=== PATIENT | male | born 1965 | race Caucasian/White ===

== ENCOUNTER 2020-11-25 06:43 | Emergency (ER) | payer SELFPAY ==
[~2020-11-25] VITALS: Ht 157.5 cm; Wt 81.8 kg
[~2020-11-25 06:43] MED LIST: AMOXICILLIN 8751 TAB PO; CEPHALEXIN500 M1 PO; ESKALITH-CR450 MG PO; KLONOPIN1 MG PO; LAMICTAL 100MG100 MG PO; LORTAB 5/500 501 TAB PO; LORTAB 7.5/5001 TAB PO; RIBASPHERE200 MG PO; ROFERON-A18 MILLION IM; SEPTRA DS 8001 TAB PO; SYNTHROID 0.10.15 MG PO
[2020-11-25 06:55] VITALS: TEMP 98.3
[2020-11-25 08:19] LABS: HEMOGLOBIN 13.3 g/dl (13.5-18.0); MEAN CELL VOLUME 94 fl (80.0-100.0); MEAN CORPUSCULAR HEMOGLOBIN 30 pg (27.0-31.0); MEAN CORPUSCULAR HGB CONC 32 g/dl (33.0-37.0); MEAN PLATELET VOLUME 10.6 fl (7.4-10.4); PLATELET COUNT 274 K/mm3 (130-400); RED BLOOD COUNT 4.37 M/mm3 (4.20-5.60); REDCELL DISTRIBUTION WIDTH-CV 13.5 % (11.5-14.5)
[2020-11-25 08:30] LABS: ALBUMIN 3.9 gm/dL (3.5-5.0); BILIRUBIN,TOTAL 0.2 mg/dL (0.0-1.0); C-REACTIVE PROTEIN 4.6 mg/dL (0.0-0.9); CALCIUM 9.1 mg/dL (8.4-10.2); CREATININE, serum 0.67 (0.66-1.25); POTASSIUM 4.3 mmol/L (3.4-5.0); TOTAL PROTEIN 7.1 gm/dL (6.4-8.2)
[2020-11-25 09:01] LABS: EOSINOPHIL 2 % (0-4); LYMPHOCYTE 15 % (20.0-51.0); NEUTROPHILS 80 % (42.0-75.2); PLATELET ESTIMATE NORMAL (NORMAL)
--- NOTE | 2020-11-25 09:02 | NUR ---
CLARA responded to ED consult. The patient has a history of IV drug use and was interested in resources. SW's met with the patient. The patient lives in [place] with his mother, Brinda Melgar. He states that he helps take care of his mother. The patient reports that his brother, Elliot, brought him up to the hospital and is helping take care of their mother while he is here. He states that his mother is safe. SW addressed the patient's drug use. The patient reports that he has done all drugs, but that his drug of choice is heroin. He informed that he last used a couple months ago and has been and IV drug user since he was [age]. The patient states that he is not currently using, but would be interested in a list of drug treatment resources. SW provided that list. The patient states that he is just in a lot of pain and does not really want to talk right now. CLARA updated the patient's RN. CLARA made an APS report, due to concerns for his mother. APS report Intake ID#[id number].
[2020-11-25 09:03] LABS: HYPOCHROMIA 2+
[2020-11-25 09:05] LABS: COLLECTION METHOD CLEAN CATCH
[2020-11-25 09:17] LABS: PH 6 (5-8); SQUAMOUS EPITHELIAL None Seen /hpf; URINE APPEARANCE Clear; URINE BACTERIA None Seen /hpf; URINE BILIRUBIN Negative (NEGATIVE); URINE BLOOD Negative (NEGATIVE); URINE COLOR Straw; URINE GLUCOSE Negative (NEGATIVE); URINE KETONE Negative (NEGATIVE); URINE LEUKOCYTE ESTERASE Negative (NEGATIVE); URINE NITRATE Negative (NEGATIVE); URINE PROTEIN(semi-quant) Negative (NEGATIVE); URINE RBC 0-2 /hpf; URINE UROBILINOGEN Negative (NEGATIVE)
[2020-11-25] MEDS ORDERED: NEURONTIN300 MG/CAP PO (09:46)
[2020-11-25 10:03] LABS: TRICYCLIC ANTIDEPRESS URINE NEGATIVE
[2020-11-25 11:11] VITALS: BP 131/92; PULSE 72
[2020-12-20] MEDS ORDERED: SYNTHROID0.175 MG PO ×2 (14:44→14:45)
[2020-12-20] MEDS ORDERED: ALEVE 220MG220 MG PO (14:46)
[2020-12-20] MEDS ORDERED: TYLENOL 325MG325 MG PO (14:46)
== END 2020-11-25 11:11 | disposition home or self-care (01) ==
LOC: COL.ER 06:43
PROVIDERS: Family Medicine
DX: F11.23 Opioid dependence with withdrawal (principal); G47.30 Sleep apnea, unspecified; F17.210 Nicotine dependence, cigarettes, uncomplicated
CPT/HCPCS: J1885

== ENCOUNTER → 2020-12-22 | Outpatient (CLI) | payer SELFPAY ==
[~2020-12-22] VITALS: Ht 157.5 cm; Wt 83.7 kg
[~2020-12-22] MED LIST changes: +ALEVE 220MG220 MG PO; +NEURONTIN300 MG/CAP PO; +SYNTHROID0.175 MG PO; +TYLENOL 325MG325 MG PO
[2020-12-22 09:23] VITALS: BP 131/81; PULSE 100
[2020-12-22 10:22] VITALS: BP 135/88; PULSE 91
== END ==
LOC: COL.RAD 09:01
DX: M54.2 Cervicalgia (principal); M25.511 Pain in right shoulder; M25.512 Pain in left shoulder; M47.812 Spondylosis without myelopathy or radiculopathy, cervical region
CPT/HCPCS: J1100

== ENCOUNTER → 2021-02-24 | Outpatient (CLI) | payer SELFPAY | LOC: COL.RAD 13:43 | DX: M47.812 Spondylosis without myelopathy or radiculopathy, cervical region (principal); M25.511 Pain in right shoulder; M25.512 Pain in left shoulder ==

== ENCOUNTER 2021-11-22 11:24 | Inpatient (IN) | payer SELFPAY ==
[~2021-11-22] VITALS: Ht 182.9 cm; Wt 76.2 kg
[~2021-11-22 11:24] MED LIST changes: +AMPICILLIN 22 G/VIAL IV; +ASPIRIN E.C. 8181 MG PO; +EUTHYROX175 MCG PO; +LIPITOR 80MG80 MG PO; +LOVENOX 4040 MG/0.4 SQ; +NICODERM C21 MG/PATC TD; +PLAVIX 75MG TAB75 MG PO; +PROTONIX 40MG T40 MG PO
[2021-11-22] MEDS ORDERED: FIORICET 325 MG1 TA1 PO (11:52)
--- NOTE | 2021-11-22 12:59 | NUR ---
Pt. transferred to unit from Medical unit at approx 12:06 p.m. via wheelchair. PICC placed to [facility] prior to admission to unit. Pt. is a/o x 4. Orientation provided to room/unit. Admission intake and Physical Assessment completed. Pt. denies further needs at this time. Call light is within his reach
--- NOTE | 2021-11-22 13:32 | NUR ---
IV abx infusing to RUE PICC. PICC flushed well w/ noted blood return
--- NOTE | 2021-11-22 17:03 | NUR ---
Pt sitting up in bed. He denies pain or discomfort. He denies further needs at this time. Call light is within his reach
[2021-11-22 17:04] VITALS: BP 121/81; PULSE 80; TEMP 97.7
[2021-11-22 18:00] VITALS: BP 121/81; PULSE 80; TEMP 97.7
--- NOTE | 2021-11-23 00:30 | NUR ---
Pt laying bed in quietly. Assessment and medication administration completed without difficulty. Pt is A&O and pleasant. Pt complains of a headache, PRN pain medication administered per EMAR. All other needs met at this time, call light within reach.
[2021-11-23 05:24] VITALS: BP 107/66; PULSE 81; TEMP 98.8
--- NOTE | 2021-11-23 06:48 | NUR ---
Shift report received from slot shift supervisor RN. Pt. awake, lying supine, ordering breakfast. RUE PICC line dressing CDI. Pt. denies pain/discomfort. Call light is within his reach
--- NOTE | 2021-11-23 09:23 | NUR ---
Pt lying on right side in bed. He has just finished PT for the morning. PICC RUE dsg is CDI. Pt. denies pain or discomfort. Denies further needs. Call light is within his reach
[2021-11-23 10:25] VITALS: BP 114/62; PULSE 74
--- NOTE | 2021-11-23 15:25 | NUR ---
CLARA met with the patient to complete intake, as the patient is new to [facility]. The patient lives in [place] with his mother, Brinda. His mother is currently hospitalized and is looking at going to a SNF or swing bed upon her hospital stay. The patient's siblings are assisting his mother with this. He reports independence with ADLs before hospitalization and does not have any DME. The patient's PCP is Dr. Yolanda Ramos and he receives his medications from [facility]. The patient is self pay. Financial Counseling met with the patient during his acute stay and reported that the patient does not qualify for Medicaid. The patient does not have a DPOA-HC, but he was interested in obtaining a form. CLARA provided. The patient states that he is not and has three children: Jarret, Jose, and Morro. CLARA informed him how his children are is legal next of kin. The patient verbalized understanding. CLARA then presented the patient with the IPR Team Conference Note. The team has set a discharge date for next Sunday, 12/02, with outpatient PT. The patient is in agreement to the plan. Due to the patient being self pay, outpatient PT would need to be set up at an [facility]. The patient states that the [place] side location [place] him. He states that he does not drive or have a vehicle. He states that he normally walks or rides his bike to places. CLARA informed him of the [facility] bus being an option. CLARA discussed setting up a patient/family meeting. The patient states that he does not have any family that he would want to have attend a meeting for him. CLARA updated IPR Director.
[2021-11-23 16:09] VITALS: BP 104/65; PULSE 73; TEMP 98
[2021-11-23 18:00] VITALS: BP 129/70; PULSE 88; TEMP 98.2
--- NOTE | 2021-11-23 18:23 | NUR ---
Pt reporting worsening headache. PRN Tylenol was given at 1600 for mild headache (3/10 pain). Pt. now rating headache at 7/10. VS WNL. Pupils equal, reactive to light. No nausea. Does have a runny nose. Dr. Hernandez notified - he will re-order Fioricet prn for NORTON as was previously used on another unit. Per Dr. Hernandez, if any neuro changes noted from baseline, notify the hospitalist. Awaiting verification from pharmacy and will administer. Will continue to monitor.
--- NOTE | 2021-11-23 19:11 | NUR ---
Fioricet administered per physician's order. Pt. reports that NORTON is starting to get better
--- NOTE | 2021-11-23 19:51 | NUR ---
PT RESTING IN BED. LT SIDED WEAKNESS ARM MORE THNA LEG. LT SIDED MOUTH DROOP. SL SLURRED SPEECH. PT RELATES HEADACHE MUCH BETTER NOW AFTER TAKING FIORICET. PT REMAIN IN ISOLATION FOR MRSA. CALL LIGHT IN REACH. BED ALAR SET.
--- NOTE | 2021-11-24 00:56 | NUR ---
PT C/O NORTON. 12/18. NO CHANGE IN NEURO STATUS. PT FEELS LIKE ITS HIS SINUSES. FIORICET GIVEN.. ICE PACK TO HEAD
[2021-11-24 01:02] VITALS: BP 131/83; PULSE 77
[2021-11-24 04:00] VITALS: BP 95/55; PULSE 78; TEMP 98.6
--- NOTE | 2021-11-24 09:33 | NUR ---
ALERT AND OX4. PLEASENT THIS AM HOWEVER DOES C/O NORTON. DR ARRINGTON ADDS TYL3. PTPICC TO RT UPPER ARM INTACT FLUSHES AND DRAWS BLOOD. DR AMANDA CALLS THIS AM TO REPORT NEW BLEED PER CT- INFORMED ANOTHER ONE ORDERED FOR 10AM D/T [facility] NEUROS[facility] ASKING FOR IT TO BE REPEAT AT 24 HR OF SYMPTOMS. POSSIBLE TRANS TO [facility] TODAY.
--- NOTE | 2021-11-24 10:43 | NUR ---
RETURNS FROM CT SCAN PER W/C. LINENS CHANGED.
--- NOTE | 2021-11-24 12:49 | NUR ---
UPDATED DR KWOK ON PT STATUS AFTER CONSULT HE ORDERS CTA OF HEAD W CONTRAST, ORDER PLACED.
--- NOTE | 2021-11-24 16:11 | NUR ---
UPDATED BALBINA STILES, PT CONT TO REPORT NORTON. DR KWOK WILL BE ROUNDING AFTER 5 PER BALBINA AND WILL GIVEN RECOMMENDATIONS.
[2021-11-24 18:22] VITALS: BP 114/75; PULSE 80; TEMP 98.2
--- NOTE | 2021-11-24 19:30 | NUR ---
RECEIVED CHANGE OF SHIFT REPORT FROM DAY SHIFT RN.
[2021-11-25 05:55] VITALS: BP 108/70; BP 99/72; PULSE 80; TEMP 98
[2021-11-25 06:44] LABS: BASO # 0.1 K/mm3 (0.0-0.2); BASO % 0.5 % (0.0-2.0); EOS # 0.5 K/mm3 (0.0-0.7); EOS % 3.4 % (0.0-4.0); GRAN % 67.3 % (42.2-75.2); HEMOGLOBIN 12.1 g/dl (13.5-18.0); LYMPH # 2.6 K/mm3 (1.2-3.4); LYMPH % 19.7 % (20.0-51.0); MEAN CELL VOLUME 93 fl (80.0-100.0); MEAN CORPUSCULAR HEMOGLOBIN 31 pg (27-31); MEAN CORPUSCULAR HGB CONC 33 g/dl (33.0-37.0); MEAN PLATELET VOLUME 11.2 fl (7.4-10.4); MONO # 1.1 K/mm3 (0.1-0.6); MONO % 8.6 % (1.7-9.3); PLATELET COUNT 281 K/mm3 (130-400); RED BLOOD COUNT 3.94 M/mm3 (4.20-5.60); REDCELL DISTRIBUTION WIDTH-CV 13.2 % (11.5-14.5)
[2021-11-25 06:50] LABS: HEMATOCRIT 36.5 % (42.0-52.0)
[2021-11-25 07:00] LABS: CALCIUM 9.1 mg/dL (8.4-10.2); CREATININE, serum 0.79 mg/dL (0.72-1.25); POTASSIUM 4.4 mmol/L (3.5-4.5)
--- NOTE | 2021-11-25 07:30 | NUR ---
CHANGE OF SHIFT REPORT GIVEN TO DAY SHIFT RNLORI.
--- NOTE | 2021-11-25 11:12 | NUR ---
PT IN BED WITH HOB ELEVATED 35 DEGREES. PT DEMONSTRATES UNDERSTANDING OF BEDREST, USES URINAL. PT DOES MOVE ET REPOSITION HIMSELF WELL IN BED INDEPENDENTLY. PT STATES THAT HE HAS CONTINUES TO HAVE HEADACHES BUT THAT SEVERITY HAS LESSENED. WHILE WORKING WITH PHYSICAL THERAPY THIS MORNING, PT REPORTED HAVING A LOUD BUZZING NOISE IN HIS EARS THAT DISIPATED AFTER SEVERAL MINUTES.
--- NOTE | 2021-11-25 13:17 | NUR ---
Admission QIM scores were reviewed by the team. Code of 4 chosen for sit to lying was determined by team discussion to be the most usual performance before interventions for this patient during the assessment period. Code of 4 chosen for lying to sitting on side of bed was determined by team discussion to be the most usual performance for this patient during the assessment period. Code of 3 chosen for walk 10 feet was determined by team discussion to be the most usual performance for this patient during the assessment period. Code of 3 chosen for walk 50 feet w/ 2 turns was determined by team discussion to be the most usual performance for this patient during the assessment period.--Isela Rene, PD
--- NOTE | 2021-11-25 14:14 | NUR ---
PT HAS HAD FINAL MRSA NASAL SWAB RESULT IN A NEGATIVE, WILL BE TAKEN OUT OF CONTACT PRECAUTIONS. Cecil CABALLERO NOTIFIED.
[2021-11-25 17:22] VITALS: BP 121/72; PULSE 77; TEMP 98.6
--- NOTE | 2021-11-25 18:37 | NUR ---
PT HAS SLEPT INTERMITTENTLY THROUGHOUT DAY, STATES THAT HEADACHE BECOMES LESS SEVERE WITH MEDICATION BUT NEVER COMPLETELY GOES AWAY. SPEECH IS SLURRED BUT PT IS APPROPRIATE. LEFT SIDED FACIAL DROOP IS NOTED. PT HAS DRANK ET EATEN MEALS WITH NO PROBLEMS, REQUIRES SET-UP ASSISTANCE.
--- NOTE | 2021-11-25 18:56 | NUR ---
RECEIVED CHANGE OF SHIFT REPORT FROM DAY SHIFT RN.
[2021-11-26 05:35] VITALS: BP 114/75; PULSE 72; TEMP 98.7
--- NOTE | 2021-11-26 06:59 | NUR ---
CHANGE OF SHIFT REPORT GIVEN TO DAY SHIFT RNPRASHANTH.
--- NOTE | 2021-11-26 07:19 | NUR ---
Shift report received from operation shift supervisor RN. Pt. resting in left side lying position in bed. Call light is within his reach
--- NOTE | 2021-11-26 10:20 | NUR ---
Pt. lying supine in bed waiting for OT session this morning. He remains on bedrest. He reports a headache at 1/10 pain and reports headache as feeling dull. Pt. practicing using his left hand to grab things on his bedside table. He denies further needs at this time. Call light is within his reach
[2021-11-26 12:58] VITALS: BP 124/80
--- NOTE | 2021-11-26 12:59 | NUR ---
Pt requesting Tylenol for NORTON at 10 pain. BP WNL. Tylenol given
[2021-11-26 17:28] VITALS: BP 121/77; PULSE 73; TEMP 98.4
--- NOTE | 2021-11-26 19:29 | NUR ---
RECEIVED CHANGE OF SHIFT REPORT FROM DAY SHIFT RN. BED ALARM ON, CALL LIGHT WITHIN REACH. DENIES ANY NEEDS/DISCOMFORT AT THIS TIME. AGREED TO TAKE STOOL SOFTENER WITH MEDS TONIGHT. L HAND DESIGN DRAFTER CHIEF WEAKER THAN RIGHT HAND DESIGN DRAFTER CHIEF AT THIS TIME.
[2021-11-27 05:49] VITALS: BP 117/76; PULSE 71; TEMP 98
--- NOTE | 2021-11-27 06:53 | NUR ---
Shift report report received from night stocker RN. Pt. resting in right side lying position. SCDs are on. Call light is within his reach
--- NOTE | 2021-11-27 07:02 | NUR ---
CHANGE OF SHIFT REPORT GIVEN TO DAY SHIFT RNPRASHANTH.
[2021-11-27 17:35] VITALS: BP 117/74; PULSE 71; TEMP 98
--- NOTE | 2021-11-27 19:07 | NUR ---
RECEIVED CHANGE OF SHIFT REPORT FROM DAY SHIFT RN. PATIENT DENIES ANY NEEDS AT TIME OF REPORT. BED ALARM ON WHEN IN BED, CALL LIGHT WITHIN REACH. OBSERVED GAIT EVEN AND STEADY WHEN UP OUT OF BED.
--- NOTE | 2021-11-27 20:00 | NUR ---
MANAN HAND HEADER SET UP OPERATOR NOT EQUAL WITH L WEAKER THAN RIGHT. OBSERVED B LEG STRENGTH EVEN WITH STEADY GAIT. DENIES PAIN AT THIS TIME.
[2021-11-28 05:30] VITALS: BP 105/68; PULSE 73; TEMP 98.8
--- NOTE | 2021-11-28 06:55 | NUR ---
Shift report received from shiftman RN. Pt. is sleeping supine in bed. Call light is within his reach
--- NOTE | 2021-11-28 06:57 | NUR ---
CHANGE OF SHIFT REPORT GIVEN TO DAY SHIFT RNPRASHANTH.
--- NOTE | 2021-11-28 10:06 | NUR ---
Pt resting supine in bed, HOB elevated approx 20 degrees. Pt. has completed OT and ST this morning. He reports feeling like a headache is coming on. PRN Fioricet given at his request. He denies further needs at this time. Call light is within his reach
--- NOTE | 2021-11-28 11:38 | NUR ---
Confirmed with Pietro, financial counselor that she completed a [employer] application with the patient. Pietro states that she is also going to set up a SS appointment for the patient.
--- NOTE | 2021-11-28 15:34 | NUR ---
Pt resting supine in bed while watching television. Pt. denies headache or general pain/discomfort at this time. He denies further needs. Call light is within his reach.
[2021-11-28 17:15] VITALS: BP 123/81; PULSE 90; TEMP 98.2
--- NOTE | 2021-11-28 22:11 | NUR ---
ASSESSMENT COMPLETE. PT. LYING IN BED WATCHING TV. A&O. NO COMPLAINTS OF PAIN. ANTIBIOTIC INFUSING TO RIGHT UPPER ARM PICC. CALL LIGHT IN REACH. NO FURHTER NEEDS AT THIS TIME.
[2021-11-29 05:23] VITALS: BP 110/68; PULSE 74; TEMP 98.1
--- NOTE | 2021-11-29 08:00 | NUR ---
PT LAYING SUPINE IN BED ON ROOM AIR. PT STATES THAT HE JUST GOT SOME TYLENOL FOR A HEADACHE AND IT IS FEELING BETTER. PT STATES "I AM JUST WAITING FOR ALL MY THERAPY TO START." PT STATES NO OTHER NEEDS AT THIS TIME. CALL LIGHT IS WITHIN REACH.
[2021-11-29 17:33] VITALS: BP 135/74; PULSE 78; TEMP 98.3
--- NOTE | 2021-11-29 18:20 | NUR ---
PT LAYING SUPINE IN BED ON ROOM AIR RESTING. PT STATES THAT HE IS "JUST TIRED." PT STATES NO PAIN OR NEEDS AT THIS TIME. CALL LIGHT IS WITHIN REACH.
--- NOTE | 2021-11-29 23:15 | NUR ---
PATIENT ALERT AND ORIENTED. DENIES PAIN. RESTING IN BED. HS MEDS PER EMAR. PICC STEFAN PATENT AND FLUSHED. REQUESTED SANDWICH BOX. DENIES ADDITIONAL NEEDS.
[2021-11-30 05:45] VITALS: BP 116/73; PULSE 70; TEMP 98.6
--- NOTE | 2021-11-30 06:54 | NUR ---
Shift report received from utilization review specialist RN. Pt. awake and sitting in recliner. Call light is within his reach. TLSO brace is on. He denies further needs at this time.
--- NOTE | 2021-11-30 06:59 | NUR ---
Shift report received from material handler 2nd shift RN. Pt resting supine in bed. HOB elevated 20 degrees. Call light is within his reach
--- NOTE | 2021-11-30 08:31 | NUR ---
Pt. ambulating in hallway with PT
--- NOTE | 2021-11-30 16:31 | NUR ---
Pt lying supine in bed. He is Mod I in room. He denies NORTON or general pain/discomfort. Denies further needs. Call light is within his reach
--- NOTE | 2021-11-30 16:37 | NUR ---
Records Management Clerk met with patient to provide copy of team conference notes. Discharge is set for Sunday and recommendation is for outpatient PT. ID is being consulted as patient currently requires IV antibiotics every four hours. CLARA provided mental health and drug/alcohol resources and patient states he has worked with [facility] in the past and knows where they are located. CLARA contacted patient's sister, America to provide update. America is concerned about where patient will live once they put their mother's home up for sale so she can move into assisted living. CLARA advised patient can apply for low income housing or access services from the [facility].
[2021-11-30 17:37] VITALS: BP 131/75; PULSE 73; TEMP 98.7
--- NOTE | 2021-11-30 19:00 | NUR ---
RECEIVED CHANGE OF SHIFT REPORT FROM DAY SHIFT RN. PATIENT UP IN ROOM PER SELF WITH NO REPORTED PROBLEMS OR CONCERNS. CALL LIGHT WITHIN REACH.
--- NOTE | 2021-11-30 20:00 | NUR ---
PATIENT UP INDEPENDENTLY IN ROOM, DOES NOT WEAR SCDs.
[2021-12-01 05:58] VITALS: BP 116/72; PULSE 74; TEMP 98.1
--- NOTE | 2021-12-01 06:55 | NUR ---
CHANGE OF SHIFT REPORT GIVEN TO DAY SHIFT KIRSTIN KHAN.
[2021-12-01 10:52] LABS: BASO # 0.1 K/mm3 (0.0-0.2); BASO % 0.5 % (0.0-2.0); EOS # 0.5 K/mm3 (0.0-0.7); EOS % 2.9 % (0.0-4.0); GRAN # 11.7 K/mm3 (1.4-6.5); GRAN % 70.3 % (42.2-75.2); HEMATOCRIT 38.6 % (42.0-52.0); HEMOGLOBIN 12.4 g/dl (13.5-18.0); LYMPH % 17.9 % (20.0-51.0); MEAN CELL VOLUME 95 fl (80.0-100.0); MEAN CORPUSCULAR HEMOGLOBIN 31 pg (27-31); MEAN CORPUSCULAR HGB CONC 32 g/dl (33.0-37.0); MEAN PLATELET VOLUME 11.6 fl (7.4-10.4); MONO # 1.3 K/mm3 (0.1-0.6); MONO % 7.6 % (1.7-9.3); PLATELET COUNT 310 K/mm3 (130-400); RED BLOOD COUNT 4.06 M/mm3 (4.20-5.60); REDCELL DISTRIBUTION WIDTH-CV 13.3 % (11.5-14.5)
[2021-12-01 17:46] VITALS: BP 119/67; PULSE 75; TEMP 98
--- NOTE | 2021-12-01 20:00 | NUR ---
PT RESTING IN BED. TALKATIVE. TALKING ABOUT DC TOMORROW WITH FEARS OF KEEPING CLEAN. HAD TO PUT MOTHER IN NH. ETC. ALLOW TO VERBALIZE FEARS. GAVE SUPPORT. NO NEEDS AT THIS TIME. CALL LIGHT IN REACH.
[2021-12-02 05:24] VITALS: BP 111/76; PULSE 69; TEMP 97.8
[2021-12-02] MEDS ORDERED: EUTHYROX175 MCG PO (09:46)
[2021-12-02] MEDS ORDERED: NICODERM C21 MG/PATC TD (09:46)
[2021-12-02] MEDS ORDERED: FIORICET 325 MG1 TA1 PO (09:46)
[2021-12-02] MEDS ORDERED: LIPITOR 80MG80 MG PO (09:46)
[2021-12-02] MEDS ORDERED: CUBICIN 500MG500 MG IV (10:02)
--- NOTE | 2021-12-02 12:28 | NUR ---
CLARA contacted the patient's sister America ([phone]) to discuss today's discharge plan. America is agreeable to the patient discharging back to his home and letting him stay there until the house sell. I Informed her that I will make an APS report so he can get help establishing housing, food and a cell phone. Spoke with America about the need for IV antibiotics x1 daily and that he would need to come to the hospital for this. America is agreeable to dropping the patient off everyday as long as it is a [id number] appointment time. She voiced concern that between her health problems, her husbands health problems, her mother's health, selling the home and the patient that she is out of PTO time and cannot take off to pick the patient up every day. Encouraged America to reach out to her other brother Elliot to assist with the patient's transportation. Phone call made to the Express unit and appointment made for 0800 for the patient's infusion. Patient's information and orders sent down to the express unit. SW spoke with patient that i had talked with his sister America and that at this time the plan is to discharge him back home. Informed the patient that i would being making an APS report due to him having a serious blood infection and he is at risk of becoming homeless. Educated the patient that they will be able to help him establish resources such as housing, food and a state cell phone. Encouraged the patient to reach out to his sponsor as much as he needed to. Strongly encouraged the patient to go to his disability appointment as scheduled because this will open up resources for him as well. Patient verbalized his understanding and agreement/motivation to staying "on the right track". Patient is also provided the [employer]. Resource guide. CLARA contacted the patient's sponsor Chevy ([phone]). Chevy verbalized the he will be able to help with transportation at times but cannot commit to everyday. He is planning on picking the patient up today to transport him back home. APS report filed. c#[id number]. Phone call made to Keyanna at [facility] to notify her of the patient, what we have worked with him on here and what he will need help getting established with once discharged. Keyanna is in agreement with looking the case over and seeing what they would be able to help the patient out with.
--- NOTE | 2021-12-02 13:05 | NUR ---
DISCHARGE INSTRUCTIONS PROVIDED. FOLLOW UP APPOINTMENTS, LABS, AND DAILY IV ANTIBIOTIC INSTRUCTIONS GIVEN. PICC LINE REMOVED. PROTOCOL FOLLOWED. PATIENT DENIES ANY QUESTIONS OR CONCERNS. PATIENT ESCORTED OUT VIA WHEELCHAIR.
--- NOTE | 2021-12-02 13:28 | NUR ---
Notified by our financial counselor that the patient has a disability appointment scheduled for January 09 at 0900. Patient has discharged at this time. Phone call made to the patients sister to notify her that the patient has discharged and when his disability appointment it scheduled for. Stressed the importance of this appointment and that it would be by phone. Phone call made to PCP office and spoke with CLARA [place]. Update provided to Nadya on the patient's current condition and plan of care. Notified Nadya of the patient's follow up appointment with their office of he , and that the patient has a disability appointment on the Jan. Nadya states that she will try and reach out to the patient and follow up with him at his appointment.
== END 2021-12-02 13:04 | disposition home or self-care (01) | DRG 57 ==
PROVIDERS: Physician Assistant; ADMIT Physical Medicine & Rehabilitation Sports Medicine
DX: I69.354 Hemiplegia and hemiparesis following cerebral infarction affecting left non-dominant side (principal); I38 Endocarditis, valve unspecified; F15.20 Other stimulant dependence, uncomplicated; R74.01 Elevation of levels of liver transaminase levels; I69.322 Dysarthria following cerebral infarction; I69.328 Other speech and language deficits following cerebral infarction; I69.393 Ataxia following cerebral infarction; E03.9 Hypothyroidism, unspecified; I10 Essential (primary) hypertension; B95.2 Enterococcus as the cause of diseases classified elsewhere; F17.210 Nicotine dependence, cigarettes, uncomplicated; I69.392 Facial weakness following cerebral infarction; Z73.6 Limitation of activities due to disability; Z79.82 Long term (current) use of aspirin; Z79.899 Other long term (current) drug therapy; Z79.2 Long term (current) use of antibiotics; Z79.01 Long term (current) use of anticoagulants; Z79.02 Long term (current) use of antithrombotics/antiplatelets
CPT/HCPCS: 99222; 99231-AI; 99232-AI; J0290; J0878; J1650; Q9967

== ENCOUNTER 2021-12-08 08:00 | Outpatient (RCR) | payer SELFPAY ==
[2021-12-03 08:38] VITALS: BP 109/71; PULSE 76; TEMP 97.7
[2021-12-04 08:09] VITALS: BP 124/71; PULSE 74; TEMP 98.1
[2021-12-05 08:32] VITALS: BP 116/72; PULSE 73; TEMP 97.7
[2021-12-06 08:09] VITALS: BP 109/69; PULSE 70; TEMP 98.5
--- NOTE | 2021-12-06 08:40 | NUR ---
Pt states he wishes to leave, and that he knows SS will call him today as previously discussed. Contact is made with Darcie from just after pt departs, she verifies that she will call him today. Pt exits dept with steady gait.
[2021-12-07 08:46] VITALS: BP 122/82; PULSE 72; TEMP 98.1
[~2021-12-08] VITALS: Ht 182.9 cm; Wt 77.6 kg
[~2021-12-08 08:00] MED LIST changes: +CUBICIN 500MG500 MG IV; +FIORICET 325 MG1 TA1 PO
[2021-12-08 08:13] VITALS: BP 114/72; PULSE 77; TEMP 98.7
== END 2021-12-08 16:17 | disposition home or self-care (01) ==
LOC: EUO 08:00
DX: Z79.899 Other long term (current) drug therapy (principal)
CPT/HCPCS: J0878

== ENCOUNTER 2021-12-15 08:00 | Outpatient (RCR) | payer SELFPAY ==
[2021-12-09 08:42] VITALS: BP 149/78; PULSE 78; TEMP 98.6
[2021-12-10 08:39] VITALS: BP 109/73; PULSE 72; TEMP 98.4
[2021-12-11 08:10] VITALS: BP 145/90; PULSE 85; TEMP 98.3
[2021-12-12 08:59] VITALS: BP 104/67; PULSE 74; TEMP 98.5
[2021-12-13 08:16] VITALS: BP 100/64; PULSE 73; TEMP 98.4
[2021-12-14 08:32] VITALS: BP 111/74; PULSE 78; TEMP 98.3
[~2021-12-15] VITALS: Ht 182.9 cm; Wt 81.1 kg
[2021-12-15 08:17] VITALS: BP 114/72; PULSE 72; TEMP 98.5
--- NOTE | 2021-12-16 08:35 | NUR ---
Report received pt is inpatient today.
== END 2021-12-16 08:35 | disposition home or self-care (01) ==
LOC: EUO 08:00
DX: I38 Endocarditis, valve unspecified (principal)
CPT/HCPCS: J0878

== ENCOUNTER 2021-12-16 00:52 | Inpatient (IN) | payer SELFPAY ==
[~2021-12-16] VITALS: Ht 175.3 cm; Wt 80.1 kg
[2021-12-16] VITALS (14 sets, daily range): BP systolic 143–173; BP diastolic 78–102; PULSE 80–90; TEMP 97.7–98.7
[2021-12-16 01:16] LABS: BASO # 0.1 K/mm3 (0.0-0.2); BASO % 0.5 % (0.0-2.0); EOS # 0.6 K/mm3 (0.0-0.7); EOS % 3.8 % (0.0-4.0); GRAN # 10.7 K/mm3 (1.4-6.5); GRAN % 69.2 % (42.2-75.2); HEMATOCRIT 39.9 % (42.0-52.0); HEMOGLOBIN 12.8 g/dl (13.5-18.0); LYMPH % 19.2 % (20.0-51.0); MEAN CELL VOLUME 93 fl (80.0-100.0); MEAN CORPUSCULAR HEMOGLOBIN 30 pg (27-31); MEAN CORPUSCULAR HGB CONC 32 g/dl (33.0-37.0); MONO # 1.1 K/mm3 (0.1-0.6); PLATELET COUNT 215 K/mm3 (130-400); RED BLOOD COUNT 4.28 M/mm3 (4.20-5.60); REDCELL DISTRIBUTION WIDTH-CV 13.6 % (11.5-14.5)
[2021-12-16 01:32] LABS: ALBUMIN 3.6 gm/dL (3.5-5.0); BILIRUBIN,TOTAL 0.2 mg/dL (0.2-1.2); C-REACTIVE PROTEIN 0.68 mg/dL (0.00-0.50); CALCIUM 9.2 mg/dL (8.4-10.2); CREATININE, serum 0.8 mg/dL (0.72-1.25); POTASSIUM 4.3 mmol/L (3.5-4.5); TOTAL PROTEIN 7.1 gm/dL (6.2-8.1)
[2021-12-16 01:37] LABS: ERYTHROCYTE SEDIMENTATION RATE 4 mm/hr (0-30)
--- NOTE | 2021-12-16 05:30 | NUR ---
Recieved pt from ED around 0500. Pt states he is unable to move, so we slid the pt over from the gurney to the bed with a 3 assist. Pt did not tolerate at all, began screaming at us and screaming in regards to his hip pain. Pt reports severe right hip pain. Shouts at staff and is uncooperative. States "I am paralyzed", but then moves the lower extremities. Pt will not let staff touch him or assist in repositioning him to make him more comfortable. Pt refuses to take off his pants and put on a gown, but states to staff that the pants are heavy on his hip. Pt also stated that he can't void, but when handed the urinal was able to void 100 ml. Pt is uncooperative when asked admission questions or any questions in general. Pt will not answer questions about what medications he takes at home. States "can't you just look up what they gave me the last time I was here?" Pt is very irritable, but then continusly apologizes for being "rude". Pt keeps stating "the doctor needs to come give me my medicines", despite just having pain medication approximately an hour and a half ago in the ED. Pt is now moving from waking up and yelling to falling asleep quickly. Pt continues to wake up and call out for pain medication despite quickly falling back asleep. Shift assessment performed to the best of my abilities, despite pt refusing to sit still for the assessment or vital signs. Intake assessment and admission assessment completed. Med rx reviwed and completed to the best of my abilities, despite pt being uncooperative and unable to answer questions. COVID and infectious disease assessments completed. No significant skin issues noted. Noted a red scratch nas on his left shoulder. 2+ pedal and radial pulses bilaterally. No edema noted at the hip, unable to palpate hip because pt will not allow me to. Educated pt on importance of repostioning to assist with comfort, but pt appears to have no interest and continues to yell. VS difficult to obtain as pt would not sit still. ESAU 160/98 and HR 89, 96% on room air. Pt continues to call out every 5-10 minutes for pain medication. Notified provider of the situation, no new changes at this time. Prn morphine was added to the MAR, will administer per orders. Will continue to monitor.
--- NOTE | 2021-12-16 06:02 | NUR ---
Vancomycin Initial Dosing Pharmacy Note Ordering provider: Olvin Chandler MD Indication/duration: Endocarditis x 14 days Relevant comorbidities: HTN LABS: WBC = 15.5, SCr = 0.80 Recommendation: Will draw troughs and follow levels. Loading dose: 1.5 grams Maintenance dose: 1.5 grams every 12 hours Trough goal: 15-20 ug/mL
--- NOTE | 2021-12-16 09:49 | NUR ---
Initial visit; Patient thanked Senior Game Developer for looking in on him and offering to keep him in her prayers.
--- NOTE | 2021-12-16 16:41 | NUR ---
SW attended rounding with physician. Patient to be seen by ortho later for hip pain. SW met with patient post rounding. States that he is still living in his mothers house and that he has followed up with his PCP, and he utilizes [facility] for prescriptions. Patient has been independent with his ADL's and does not utilize any DME to assist with mobility. Patient was recently discharged from our IPR unit on 12/02 back home. He was doing well at the time of discharge. Patient reports that he does not have a DPOA-HC established but does have a living child: Jose ([phone]). Patient's sister America ([phone]) was actively involved in the patient's care the last admission. Discharge plan: Home *pending PT/OT layo*
[2021-12-16 17:18] LABS: SYNOVIAL FLUID APPEARANCE CLOUDY; SYNOVIAL FLUID COLOR YELLOW
[2021-12-16 17:20] LABS: SYNOVIAL FL. MONONUCLEAR 12.4 % (0-75); SYNOVIAL FLUID RBC 1000 /mm3 (0-0); SYNOVIAL FLUID WBC 19496 /mm3 (200-600)
--- NOTE | 2021-12-16 19:00 | NUR ---
PT IS NOW CALM, HAD PAIN THROUGHOUT THE DAY, FLOURO NEEDLE GUIDENCE DONE, PT ON PRN MORPHINE AND HYDROCODONE, ORIENT AND ALERT X2, VSS WITH BP SLIGHTLY ELEVATED
[2021-12-17] VITALS (7 sets, daily range): BP systolic 135–154; BP diastolic 75–87; PULSE 76–88; TEMP 98–98.9
--- NOTE | 2021-12-17 00:21 | NUR ---
Pt alert and oriented, drowsy but alert. Much calmer and more cooperative this evening that early this morning. Pt still reports pain in the right hip, but is no longer yelling out in pain. Resting currently. Right hip site is clean/dry/intact. No redness/edema/drainage noted. Shift assessment performed. Medications administered per orders and education provided. VS stable. BP continuing to run elevated. Notified FEDERICO Brown of pt's elevated BP and prn hydralazine was added for systolic greater than 170 or diastolic greater than 110. Pt satting WNL on room air. No significant skin issues noted. Continuing with IV antibx overnight. Continuing to assess neuro checks q4hr. Pt still has decreased movement on the right side and is unable to ambulate, but appears to have more movement this evening. Pt does not report any questions at this time, will continue to monitor.
--- NOTE | 2021-12-17 06:09 | NUR ---
No adverse events overnight. Pt resting, but alert and oriented to speech. Continued with IV antibx overnight. Prn pain medication administered x2 for right hip pain. Pt still has limited movement with the right hip. VS stable, BP still running elevated. On room air. Afebrile. Voiding adequately. Continued with q4 neuro checks. Pt does not report any questions at this time, will continue to monitor.
--- NOTE | 2021-12-17 07:44 | NUR ---
PT SLEEPING SOUNDLY AT THIS TIME.HAD A CALM NIGHT PER REPORT.
--- NOTE | 2021-12-17 19:21 | NUR ---
PT VSS, ORIENT AND ALERT, STILL COMPLAINTS OF SEVERE PAIN TO THE RIGHT HIP, PRN PAIN MEDS GIVEN.DUE PRISCRIBED MEDS GIVEN PT TOLARATED WELL.
[2021-12-18] VITALS (22 sets, daily range): BP systolic 122–176; BP diastolic 66–93; PULSE 68–97; TEMP 97.2–981
--- NOTE | 2021-12-18 01:49 | NUR ---
Pt alert and oriented, follows commands, resting at this time. Pt continues to report pain and decreased ROM in the right hip and RLE. Prn morphine x2 and prn roxicodone x1 administered pain so far. Pt reports relief after administration. Pt is still unable to ambulate. Adequate voiding recorded. Shift assessment performed. Medications administered per orders and education provided. VS stable. Afebrile. On room air. No significant skin issues noted. No edema or drainage noted at the right hip site. Pt NPO at 0000 for possible procedure tomorrow. Pt tolerating PO medications. Pt does not report any questions at this time, will continue to monitor.
--- NOTE | 2021-12-18 05:53 | NUR ---
No adverse events overnight. Pt kept NPO since 0000. Continues to report RLE pain overnight. Prn pain medication administered multiple times for pain. Pt resting on and off overnight. Alert and oriented, calm. Adequate urine output overnight. VS stable. Afebrile. Satting WNL on room air. Pt does not report any questions at this time, will continue to monitor.
--- NOTE | 2021-12-18 07:26 | NUR ---
PT GOING FOR I&D TODAY ,NPO FROM MIDNIGHT,CONSENT SIGNED.PT VERBALZES THAT HE IS READY.
[2021-12-18 09:44] LABS: BASO # 0.1 K/mm3 (0.0-0.2); BASO % 0.5 % (0.0-2.0); EOS # 0.5 K/mm3 (0.0-0.7); EOS % 3.9 % (0.0-4.0); GRAN # 8.3 K/mm3 (1.4-6.5); GRAN % 65.6 % (42.2-75.2); HEMATOCRIT 41.5 % (42.0-52.0); HEMOGLOBIN 13.5 g/dl (13.5-18.0); LYMPH # 2.6 K/mm3 (1.2-3.4); LYMPH % 20.6 % (20.0-51.0); MEAN CELL VOLUME 93 fl (80.0-100.0); MEAN CORPUSCULAR HEMOGLOBIN 30 pg (27-31); MEAN CORPUSCULAR HGB CONC 33 g/dl (33.0-37.0); MEAN PLATELET VOLUME 11.3 fl (7.4-10.4); MONO # 1.2 K/mm3 (0.1-0.6); MONO % 9.1 % (1.7-9.3); PLATELET COUNT 203 K/mm3 (130-400); RED BLOOD COUNT 4.48 M/mm3 (4.20-5.60); REDCELL DISTRIBUTION WIDTH-CV 13.7 % (11.5-14.5)
[2021-12-18 10:00] LABS: CALCIUM 9.5 mg/dL (8.4-10.2); CREATININE, serum 0.73 mg/dL (0.72-1.25); POTASSIUM 4.4 mmol/L (3.5-4.5)
--- NOTE | 2021-12-18 15:14 | NUR ---
PT BACK FROM OR FOR I&D, ALERT AND ORIENT X4, VSS, DENIES PAIN, PT HAS HEMOVAC ON THE RIGHT HIP TO SUNCTION.
--- NOTE | 2021-12-18 19:13 | NUR ---
PT POST I&d, vss, orient and alert x2, due meds given no side effects noted, complaints of pain at the right hip joint, due prescribed meds given for the pain.
--- NOTE | 2021-12-19 05:17 | NUR ---
ASSESSMENT COMPLETE FOR THIS SHIFT. PT RESTING IN BED TALKING ON THE PHONE WITH HIS MOTHER. PT COMPLAINED OF PAIN SEVERAL TIMES TONIGHT. PT ALTERNATED BETWEEN MORPHINE AND ROXICODONE THROUGHOUT THE SHIFT. SURGICAL SITE CDI AND DRAINING VIA HEMOVAC. PT DENIED CHEST PAIN, PALPITATIONS, SOB, N,V,D OR DIZZINESS. PT REQUESTED AND GIVEN A STOOL SOFT. PT EXPRESSED NO ADDITIONAL NEEDS AT THIS TIME. CALL LIGHT WITHIN REACH.
[2021-12-19 05:26] VITALS: BP 127/78; PULSE 80; TEMP 97.2
[2021-12-19 07:01] LABS: BASO % 0.2 % (0.0-2.0); EOS % 0.1 % (0.0-4.0); GRAN # 13.6 K/mm3 (1.4-6.5); GRAN % 85.7 % (42.2-75.2); HEMATOCRIT 37.6 % (42.0-52.0); HEMOGLOBIN 12.5 g/dl (13.5-18.0); MEAN CELL VOLUME 91 fl (80.0-100.0); MEAN CORPUSCULAR HEMOGLOBIN 30 pg (27-31); MEAN CORPUSCULAR HGB CONC 33 g/dl (33.0-37.0); MONO # 1.2 K/mm3 (0.1-0.6); MONO % 7.6 % (1.7-9.3); PLATELET COUNT 219 K/mm3 (130-400); RED BLOOD COUNT 4.13 M/mm3 (4.20-5.60)
[2021-12-19 07:15] LABS: C-REACTIVE PROTEIN 7.75 mg/dL (0.00-0.50); CALCIUM 9.5 mg/dL (8.4-10.2); CREATININE, serum 0.72 mg/dL (0.72-1.25); POTASSIUM 4.6 mmol/L (3.5-4.5)
[2021-12-19 07:27] VITALS: BP 137/77; PULSE 80; TEMP 97.5
--- NOTE | 2021-12-19 08:30 | NUR ---
Patient is resting in bed, alert and oriented x 4, VSS, mild HTN 130's SBP. Continues with pain in right hip, PRN provided. Receiving D5 1/2 NS 100ml/hr. Assessment completed, meds provided. No other needs at this time. Call light within reach.
--- NOTE | 2021-12-19 10:09 | NUR ---
Initial visit; Patient thanked [employer] Sign Language Interpreter for looking in on him and offering encouragement and prayer. [employer] Sign Language Interpreter will follow up, patient appears to appreciate visit.
[2021-12-19 11:19] VITALS: BP 144/81; PULSE 91; TEMP 98.1
--- NOTE | 2021-12-19 11:26 | NUR ---
Called made to DR. Berg r/t consult.
[2021-12-19 15:24] VITALS: BP 140/77; PULSE 80; TEMP 97.6
--- NOTE | 2021-12-19 15:50 | NUR ---
SW placed a referral for [facility]. Per [facility] director, the patient's condition appears to be more pain related vs. a functioning problem therefore they are going to deny him for rehab in their unit.
--- NOTE | 2021-12-19 19:10 | NUR ---
Patient was able to transfer himself to the restroom using the walker and assissted x 1. Continue gettin fluids and pain medication PRN. Report sebas st RN.
[2021-12-19 20:07] VITALS: BP 126/70; PULSE 92; TEMP 98.9
[2021-12-19 23:30] VITALS: BP 97/60; PULSE 83; TEMP 98.5
[2021-12-20] VITALS (7 sets, daily range): BP systolic 109–148; BP diastolic 68–88; PULSE 67–88; TEMP 97.8–99
--- NOTE | 2021-12-20 06:15 | NUR ---
ASSESSMENT COMPLETE FOR THIS SHIFT. PT RESTING IN BED WATCHING TV. PT COMPLAINED OF PAIN A FEW TIMES THIS SHIFT. PT GIVEN MORPHINE AND ROXICODONE FOR PAIN. PT FELT PAIN MEDS WORKED A LITTLE LONGER TONIGHT. PT STILL SAYS HE CAN'T LEFT HIS RIGHT LEG. HE SAYS HE CAN FEEL WHEN I TOUCH HIS RLE AND CAN MOVE IT ON THE BED. WILL CONTINUE TO MONITOR. PT DENIED CHEST PAIN, PALPITATIONS, SOB, N,V,D OR DIZZINESS. PT EXPRESSED NO ADDITIONAL NEEDS AT THIS TIME. CALL LIGHT WITHIN REACH.
--- NOTE | 2021-12-20 09:10 | NUR ---
Patient is resting in bed, alert and oriented x 4, VSS. States pain in his right hip, PRN provided. Continues receiving D5 1/2NS AT 75 ML/HR. Assessment completed, meds provided. No other needs at this time.
--- NOTE | 2021-12-20 13:12 | NUR ---
riprap worker attended rounding this morning. 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 Physician educates the patient that there probably is not a need for a picc line at this time. SW encouraged the patient to move around as much as possible within him room and that he needs to work with PT as [facility] unable to accept him at this time and he is likely to return home. Patient agreeabe.
--- NOTE | 2021-12-20 13:40 | NUR ---
Follow-up visit; Patient says he is a little better today and thanked Farm Field Manager for offering God's blessings. Farm Field Manager will continue to pray for Michael.
--- NOTE | 2021-12-20 19:05 | NUR ---
Patient has had a calm day. He continues with pain with movement, and PRN provided. Report given to night RN.
[2021-12-21 07:12] VITALS: BP 118/69; PULSE 75; TEMP 98.4
--- NOTE | 2021-12-21 08:00 | NUR ---
Patient is resting in bed, alert and oriented x 4, VSS. Continues getting oral pain medication and moving with the walker. Assessent completed, no other needs at this time. Call light within reach.
[2021-12-21 12:00] VITALS: BP 146/80; PULSE 73
--- NOTE | 2021-12-21 14:52 | NUR ---
Patient was provided with discharge information, all questions answered. IV accesss discontinued. Family member will tom him home.
[2021-12-30] MEDS ORDERED: TORADOL 10MG TA10 MG PO (08:18)
== END 2021-12-21 14:53 | disposition home or self-care (01) | DRG 854 ==
LOC: COL.ER 00:52 → MEDICAL 03:16
PROVIDERS: Emergency Medicine; Orthopaedic Surgery Sports Medicine; Physician Assistant; ADMIT Internal Medicine
PROC: 0S993ZX Drainage of Right Hip Joint, Percutaneous Approach, Diagnostic (ICD-10-PCS; 2021-12-16)
PROC: 0S9900Z Drainage of Right Hip Joint with Drainage Device, Open Approach (ICD-10-PCS; principal; 2021-12-18 08:00)
DX: A41.9 Sepsis, unspecified organism (principal); M00.9 Pyogenic arthritis, unspecified; I38 Endocarditis, valve unspecified; F15.10 Other stimulant abuse, uncomplicated; F11.10 Opioid abuse, uncomplicated; E03.9 Hypothyroidism, unspecified; I10 Essential (primary) hypertension; M25.451 Effusion, right hip; F31.9 Bipolar disorder, unspecified; F17.210 Nicotine dependence, cigarettes, uncomplicated; D72.829 Elevated white blood cell count, unspecified; Z79.01 Long term (current) use of anticoagulants; Z79.82 Long term (current) use of aspirin; I69.334 Monoplegia of upper limb following cerebral infarction affecting left non-dominant side; Z87.19 Personal history of other diseases of the digestive system; Z79.890 Hormone replacement therapy
CPT/HCPCS: OP; 99232-AI; 99233-AI; 99239; A9284; G0378; J0690; J0696; J0878; J1100; J1170; J1885; J2060; J2270; J2405; J2704; J3010; J3370; J7030; J7050; Q9967

== ENCOUNTER 2022-01-03 08:00 | Outpatient (RCR) | payer SELFPAY ==
[2021-12-22 08:40] VITALS: BP 108/71; PULSE 70; TEMP 98.1
[2021-12-23 08:04] VITALS: BP 111/63; PULSE 75; TEMP 98.3
[2021-12-24 10:04] VITALS: BP 126/75; PULSE 78; TEMP 98.6
[2021-12-25 08:25] VITALS: BP 131/78; PULSE 76; TEMP 98.5
[2021-12-26 08:30] VITALS: BP 109/69; PULSE 76; TEMP 98.7
[2021-12-27 08:22] VITALS: BP 121/76; PULSE 76; TEMP 98.3
[2021-12-28 08:15] VITALS: BP 122/80; PULSE 72; TEMP 98.1
[2021-12-29 08:14] VITALS: BP 112/68; PULSE 73; TEMP 98.3
[2021-12-30 08:19] VITALS: BP 130/85; PULSE 79; TEMP 98.3
[2021-12-31 08:02] VITALS: BP 105/68; PULSE 70; TEMP 98
[2022-01-01 08:26] VITALS: BP 109/66; PULSE 78; TEMP 98.1
[2022-01-02 09:44] VITALS: BP 129/74; PULSE 73; TEMP 98
[~2022-01-03] VITALS: Ht 175.3 cm; Wt 81.4 kg
[~2022-01-03 08:00] MED LIST changes: +TORADOL 10MG TA10 MG PO
[2022-01-03 09:00] VITALS: BP 11/73; PULSE 75; TEMP 98
== END 2022-01-03 09:00 | disposition home or self-care (01) ==
LOC: EUO 08:00
DX: Z51.81 Encounter for therapeutic drug level monitoring (principal)
CPT/HCPCS: J0878

== ENCOUNTER → 2022-01-05 | Outpatient (CLI) | payer SELFPAY ==
[2022-01-05 13:02] LABS: BASO # 0.1 K/mm3 (0.0-0.2); BASO % 1.1 % (0.0-2.0); EOS # 1.3 K/mm3 (0.0-0.7); EOS % 12.3 % (0.0-4.0); GRAN # 5.4 K/mm3 (1.4-6.5); GRAN % 49.1 % (42.2-75.2); HEMATOCRIT 38.5 % (42.0-52.0); HEMOGLOBIN 12.5 g/dl (13.5-18.0); LYMPH # 3.3 K/mm3 (1.2-3.4); LYMPH % 30.2 % (20.0-51.0); MEAN CELL VOLUME 92 fl (80.0-100.0); MEAN CORPUSCULAR HEMOGLOBIN 30 pg (27-31); MEAN CORPUSCULAR HGB CONC 33 g/dl (33.0-37.0); MEAN PLATELET VOLUME 11.6 fl (7.4-10.4); MONO # 0.8 K/mm3 (0.1-0.6); MONO % 7.1 % (1.7-9.3); PLATELET COUNT 260 K/mm3 (130-400); RED BLOOD COUNT 4.17 M/mm3 (4.20-5.60); REDCELL DISTRIBUTION WIDTH-CV 13.9 % (11.5-14.5)
[2022-01-05 13:13] LABS: ALBUMIN 3.5 gm/dL (3.5-5.0); CALCIUM 9.2 mg/dL (8.4-10.2); CREATININE, serum 0.76 mg/dL (0.72-1.25); POTASSIUM 4.5 mmol/L (3.5-4.5)
== END ==
LOC: COL.LAB 12:33
PROVIDERS: Internal Medicine
DX: I38 Endocarditis, valve unspecified (principal)

== ENCOUNTER 2023-11-28 06:35 | Emergency (ER) | payer MEDICAID ==
[~2023-11-28] VITALS: Ht 175.3 cm; Wt 75.0 kg
[2023-11-28 06:39] VITALS: TEMP 97.7
[2023-11-28] MEDS ORDERED: NS 1,000 ML IV ONE (07:15)
[2023-11-28] MEDS ORDERED: Ondansetron 4 MG/2 ML VIAL IV ONE (07:15)
[2023-11-28] MEDS ORDERED: fentaNYL 50 MCG/ML 2 ML VIAL IV ONE ×2 (07:30→09:00)
[2023-11-28 08:12] LABS: BASO # 0.1 K/mm3 (0.0-0.2); BASO % 0.6 % (0.0-2.0); EOS # 0.6 K/mm3 (0.0-0.7); EOS % 5.2 % (0.0-4.0); GRAN # 7.3 K/mm3 (1.4-6.5); GRAN % 59.8 % (42.2-75.2); HEMATOCRIT 42.6 % (42.0-52.0); HEMOGLOBIN 14.1 g/dl (13.5-18.0); LYMPH # 2.9 K/mm3 (1.2-3.4); LYMPH % 24.1 % (20.0-51.0); MEAN CELL VOLUME 94 fl (80.0-100.0); MEAN CORPUSCULAR HEMOGLOBIN 31 pg (27-31); MEAN CORPUSCULAR HGB CONC 33 g/dl (33.0-37.0); MEAN PLATELET VOLUME 11.1 fl (7.4-10.4); MONO # 1.2 K/mm3 (0.1-0.6); PLATELET COUNT 239 K/mm3 (130-400); RED BLOOD COUNT 4.54 M/mm3 (4.20-5.60); REDCELL DISTRIBUTION WIDTH-CV 12.4 % (11.5-14.5)
[2023-11-28 08:16] LABS: ALBUMIN 3.3 g/dL (3.5-5.0); BILIRUBIN,TOTAL 0.3 mg/dL (0.2-1.2); C-REACTIVE PROTEIN 2.29 mg/dL (0.00-0.50); CALCIUM 9.9 mg/dL (8.4-10.2); CREATININE, serum 0.89 mg/dL (0.72-1.25); POTASSIUM 3.7 mEq/L (3.5-4.5); TOTAL PROTEIN 6.4 g/dl (6.2-8.1)
[2023-11-28 08:26] LABS: ERYTHROCYTE SEDIMENTATION RATE 5 mm/hr (0-30)
[2023-11-28] MEDS ORDERED: cefTRIAXone 2 G in Water For Injection,Sterile 20 ML IV ONE (09:00)
[2023-11-28] MEDS ORDERED: Doxycycline Monohydrate 100 MG CAP PO ONE (09:00)
[2023-11-28] MEDS ORDERED: HYDROcodone/Acetaminophen 7.5-325 MG TAB PO ONE (09:00)
[2023-11-28] MEDS ORDERED: CEPHALEXIN500 M1 PO (09:23)
[2023-11-28] MEDS ORDERED: DOXYCYCLINE 10100 MG PO (09:23)
[2023-11-28 09:32] LABS: COLLECTION METHOD CLEAN CATCH
--- NOTE | 2023-11-28 09:45 | NUR ---
hide worker was informed pt needs a ride home and is not being admitted. There were reported concerns of pt cancelling his PCP appointment with Dr. Ramos. CLARA called Dr. Ramos's office and was informed he has an appointment for 12:45pm tomorrow, 11/28. CLARA spoke with Dr. Simon who reports pt is just about ready to go. CLARA met with pt and he states he has a ride set up through his insurance for tomorrow's appointment. CLARA informed pt she will set up a ride through his insurance to get him home today. CLARA called pt's [employer] insurance and they will send a Lyft around 10:15-10:45am. CLARA informed pt and Dr. simon.
[2023-11-28 10:01] LABS: URINE APPEARANCE CLOUDY (CLEAR/HAZY); URINE BLOOD NEGATIVE (NEGATIVE); URINE COLOR YELLOW (YELLOW); URINE GLUCOSE NEGATIVE (NEGATIVE); URINE KETONE NEGATIVE (NEGATIVE); URINE NITRATE NEGATIVE (NEGATIVE); URINE PROTEIN(semi-quant) NEGATIVE (NEGATIVE)
[2023-11-28 10:23] VITALS: BP 163/96; PULSE 84
--- NOTE | 2023-11-28 11:16 | NUR ---
tube worker was informed pt missed the previosu established ride. SW set up a new ride and was informed they will text him in 7-10 minutes with details of the ride, eta, and ride type. CLARA informed ERIN Hubbard. [employer] reference number [id number]
== END 2023-11-28 11:00 | disposition home or self-care (01) ==
LOC: COL.ER 06:35
PROVIDERS: Emergency Medicine
DX: M25.511 Pain in right shoulder (principal); F17.200 Nicotine dependence, unspecified, uncomplicated; Z87.39 Personal history of other diseases of the musculoskeletal system and connective tissue
CPT/HCPCS: J0696; J2405; J3010; J7030